=== PATIENT | female | born 1965 | race Caucasian/White ===

== ENCOUNTER 2019-04-01 20:24 | Emergency (ER) | payer MEDICAID ==
[~2019-04-01] VITALS: Ht 157.5 cm; Wt 69.1 kg
[2019-04-01 20:44] LABS: GLUCOSE,POINT OF CARE 154 MG/DL (70-110)
[2019-04-01] MEDS ORDERED: ALBU8.5H8 IH (20:46)
[2019-04-01] MEDS ORDERED: METH500T7 PO (20:46)
[2019-04-01] MEDS ORDERED: LOSA1TAB37 PO (20:46)
[2019-04-01] MEDS ORDERED: BECL10.62 IH (20:46)
[2019-04-01] MEDS ORDERED: NAPR250T4 PO (20:46)
[2019-04-01] MEDS ORDERED: KETOROLAC TROMETHAMINE 30 MG/ML VIAL IM ONE (21:30)
[2019-04-01 22:46] VITALS: BP 135/71
== END 2019-04-01 22:54 | disposition home or self-care (01) ==
LOC: EMS 20:25
DX: S63.501A Unspecified sprain of right wrist, initial encounter (principal); S93.401A Sprain of unspecified ligament of right ankle, initial encounter; J45.909 Unspecified asthma, uncomplicated; E11.9 Type 2 diabetes mellitus without complications; I10 Essential (primary) hypertension; F17.210 Nicotine dependence, cigarettes, uncomplicated; G89.29 Other chronic pain; Z88.1 Allergy status to other antibiotic agents; W01.0XXA Fall on same level from slipping, tripping and stumbling without subsequent striking against object, initial encounter; Y93.89 Activity, other specified; Y92.89 Other specified places as the place of occurrence of the external cause; Y99.8 Other external cause status
CPT/HCPCS: 29125; 73110; 73590; 73610; 82962; 96372; 99283; J1885; 29280; 29540